=== PATIENT | male | born 1955 | race Caucasian/White ===

== ENCOUNTER 2024-10-28 10:05 | Inpatient (IN) | payer OTHER ==
[2024-10-28] MEDS ORDERED: MORPHINE 4 MG/ML SYR ONE ×2 (10:36→11:42)
[2024-10-28] MEDS ORDERED: ONDANSETRON 4 MG/2 ML VIAL ONE (10:36)
[2024-10-28] MEDS ORDERED: NA CHLORIDE 0.9% 1,000 ML ONE (10:36)
[2024-10-28 10:40] LABS: Absolute Lymphocytes (CBC) 1.7 K/uL (0.7-4.9); Hematocrit 38.2 % (39.6-49.0); Hemoglobin 12.7 g/dL (13.6-17.9); MCH 31.4 pg (27.0-35.0); MCHC 33.2 g/dL (32.0-36.0); MCV 94.6 fL (80-100); MPV 7.1 fL (7.6-11.3); Nucleated RBC Absolute Count 0.0 (0-0); Nucleated Red Blood Cells % 0.0 % (0-0); RBC Red Blood Cell Count 4.04 M/uL (4.33-5.43); White Blood Count 13.60 thou/uL (4.3-10.9)
[2024-10-28 10:58] LABS: ALT/SGPT 15 U/L (16-61); Albumin 2.2 g/dL (3.4-5.0); Albumin/Globulin Ratio 0.6 (1.1-1.8); Alkaline Phosphatase 65 U/L (45-117); Anion Gap 9.0 mEq/L (5.0-15.0); BUN Blood Urea Nitrogen 28 mg/dL (7-18); Globulin 3.4 g/dL (2.3-3.5); Glucose Level 195 mg/dL (74-106); Lipase 24 U/L (13-75); Potassium 4.0 mEq/L (3.5-5.1)
--- NOTE | 2024-10-28 10:58 | RAD REPORT ---
EXAM: Chest Single View HISTORY: 69 years Male Cough;Congestion COMPARISON: 10/26/2024 FINDINGS: LUNGS/PLEURA: Worsening aeration at the left lung base which may represent increasing pneumonia. Poss ible small left effusion. CARDIAC/MEDIASTINUM: Stable size and configuration. UPPER ABDOMEN: No significant abnormality. BONES: No acute abnormality. LINES/TUBES/OTHER: N/A IMPRESSION: Worsened aeration left lung base remains concerning for pneumonia.
[2024-10-28 11:08] LABS: AST/SGOT < 10 U/L (15-37)
--- NOTE | 2024-10-28 11:36 | RAD REPORT ---
EXAMINATION: Abdomen Pelvis W Contrast CLINICAL INDICATION: Male, 69 years old.ABD PAIN TECHNIQUE: CT abdomen and pelvis was performed, after the administration of IV contrast, as per [facility] protocol. Axial, sagittal and coronal reconstructions were obtained. One or more of the following dose reduction techniques were used: Automated exposure control, adjustment of the mA and/o r kV according to patient size, and/or iterative reconstruction. Unless otherwise specified, incidental findings do not require dedicated imaging follow-up. [id number]. COMPARISON: 10/23/2024 FINDINGS: LOWER CHEST: Similar consolidative airspace disease in left lower lobe. Increase in size of a small l eft pleural effusion.No significant pericardial effusion. Mild circumferential thickening of the distal esophagus which could reflect esophagitis. UPPER GI: No significant abnormality. LIVER: No significant focal abnormality. GALLBLADDER/BILE DUCTS: No biliary ductal dilatation.? PANCREAS: No mass, ductal dilation, or jimenez-pancreatic fluid. SPLEEN: Unremarkable. ADRENALS: No adrenal masses. KIDNEYS AND URETERS: No hydronephrosis.Low density and/or too small to characterize renal lesions whi ch are statistically benign. ABDOMINAL AORTA AND OTHER VESSELS: Moderate atherosclerotic changes without aortic aneurysm. PERITONEUM: No abnormal free fluid. No free air. LYMPH NODES: No pathologic lymphadenopathy. ABDOMINAL WALL: Unremarkable SMALL BOWEL/COLON: Small bowel has normal course and caliber. No colonic wall thickening or pericolon ic inflammatory changes. Mild diverticulosis without diverticulitis. Moderate formed stool burden. URINARY BLADDER: Underdistended but grossly unremarkable. REPRODUCTIVE ORGANS: Mild prostatomegaly. MUSCULOSKELETAL: No acute or suspicious osseous abnormality. ADDITIONAL FINDINGS: None IMPRESSION: No acute findings within the abdomen or pelvis. Persistent consolidative left lower lobe airspace disease concerning for pneumonia with small but enl arging parapneumonic effusion.
[2024-10-28 12:26] LABS: PT Prothrombin Time 14.0 SECONDS (10-13.0); PTT, Activated Partial Thromb 28.1 SECONDS (27.2-37.4); Protime INR 1.25
--- NOTE | 2024-10-28 12:55 | EDPHYS ---
Physician Documentation [facility] Name: Kirill Mae Age: 69 yrs Sex: Male : 1955 Arrival Date: 10/28/2024 Time: 10:05 Bed 16 Private MD: ED Physician Saturnino Meza HPI: 10/28 12:55 This 69 yrs old Male presents to ER via Ambulatory with complaints of Abdominal Pain. kb 12:55 Pt is a 69 year old male who presents for left sided abd pain that started yesterday. kb States he was admitted for 3 days for pneumonia, discharged on Saturday. States he didn't have pain with the pneumonia, but now has the pain and it has become unbearable. States his cough, congestion and fever have not gotten any better since discharge. Historical: - Allergies: 10:15 No Known Allergies; ll1 - PMHx: 10:15 History of urinary tract infection; ll1 - PSHx: 10:15 Appendectomy; ll1 - Immunization history:: Adult Immunizations up to date. - Infectious Disease History:: Denies. - Social history:: Smoking status: Patient denies any tobacco usage or history of. ROS: 12:45 Constitutional: As per HPI kb Exam: 12:45 Constitutional: This is a well developed, well nourished patient who is awake, alert, kb and in no acute distress. Head/Face: Normocephalic, atraumatic. ENT: Moist Mucous membranes Cardiovascular: Regular rate Respiratory: Respirations even and unlabored. No increased work of breathing. Talking in full sentences Skin: Warm, dry with normal turgor. Normal color. MS/ Extremity: Pulses equal, no cyanosis. Neurovascular intact. Full, normal range of motion. Neuro: Awake and alert, GCS 15, oriented to person, place, time, and situation. 12:45 Abdomen/GI: Inspection: abdomen appears normal, Bowel sounds: normal, Palpation: soft, in all quadrants, moderate abdominal tenderness, in the left lower quadrant, Vital Signs: 10:21 BP 123 / 64; Pulse 85; Resp 22; Temp 97.6; Pulse Ox 98% ; Weight 74.84 kg; Height 5 ft. ll1 7 in. ; Pain 10/10; 11:00 BP 136 / 72; Pulse 76; Resp 15; Pulse Ox 99% ; me1 12:00 BP 126 / 79; Pulse 76; Resp 14; Pulse Ox 100% ; me1 13:00 BP 128 / 76; Pulse 74; Resp 15; Pulse Ox 98% ; me1 16:00 BP 127 / 64; Pulse 79; Resp 16; Temp 98.2; Pulse Ox 97% ; me1 10:21 Body Mass Index 25.84 (74.84 kg, 170.18 cm) ll1 10:21 Pain Scale: Adult ll1 MDM: 10:10 Medical Screening Exam initiated kb 12:47 Data reviewed: vital signs, nurses notes. kb 12:54 Differential diagnosis: diverticulitis, pneumonia, pleurisy, effusion, pneumothorax. kb Consideration of Admission/Observation Patient was admitted/placed on observation. Escalation of care including admission/observation considered. Management of patient was discussed with the following: Hospitalist: Evan THOMPSON accepts pt for admission under Dr Meza. Historians other than the Patient: Family Member: family. Counseling: I had a detailed discussion with the patient and/or guardian regarding the historical points, exam findings, and any diagnostic results supporting the discharge/admit diagnosis, lab results, radiology results, the need for further work-up and treatment in the hospital. 10/28 10:23 Order name: CBC with Diff; Complete Time: 11:03 kb 10/28 10:23 Order name: CMP; Complete Time: 11:09 kb 10/28 10:23 Order name: Lipase; Complete Time: 11:09 kb 10/28 11:09 Order name: Blood Culture Adult (2) kb 10/28 11:09 Order name: Lactate w/ 2H reflex if indic.; Complete Time: 12:41 kb 10/28 11:09 Order name: Protime (+inr); Complete Time: 12:41 kb 10/28 11:09 Order name: Ptt, Activated; Complete Time: 12:41 kb 10/28 10:23 Order name: CT Abd/Pelvis - IV Contrast Only; Complete Time: 11:37 kb 10/28 10:23 Order name: Chest Single View XRAY; Complete Time: 11:03 kb 10/28 10:23 Order name: IV Saline Lock; Complete Time: 10:34 kb 10/28 10:23 Order name: Labs collected and sent; Complete Time: 10:34 kb Administered Medications: 10:42 Drug: Ondansetron IVP 4 mg IVP once; over 2 minutes Route: IVP; Site: left antecubital; me1 11:19 Follow up: Response: No adverse reaction; Nausea is decreased me1 10:42 Drug: morphine IVP or IV 4 mg IVP once over 4 mins Route: IVP; Infused Over: 4 mins; me1 Site: left antecubital; 11:20 Follow up: Response: No adverse reaction; Pain is decreased me1 10:42 Drug: NS 0.9% IV 1000 ml IV at 1 bolus Per protocol; to be given as a bolus over 60 me1 minutes Route: IV; Rate: 1 bolus; Site: left antecubital; 14:50 Follow up: Response: No adverse reaction; IV Status: Completed infusion; IV Intake: me1 1000ml 11:52 Drug: morphine IVP or IV 4 mg IVP once over 4 mins Route: IVP; Infused Over: 4 mins; me1 Site: left antecubital; 12:32 Follow up: Response: No adverse reaction; Pain is decreased me1 13:14 Drug: Rocephin IV 1 grams IV at calculated rate once; Given slow IV push per pharmacy me1 instructions Route: IV; Rate: calculated rate; Site: left antecubital; 13:26 Follow up: Response: No adverse reaction; IV Status: Completed infusion me1 13:14 Drug: Zithromax IVPB 500 mg IVPB once over 1 hrs; mix in 250 mL NS Route: IVPB; Infused me1 Over: 1 hrs; Site: left antecubital; 14:13 Follow up: Response: No adverse reaction; IV Status: Completed infusion; IV Intake: me1 250ml 14:01 Drug: Hydrocodone-Acetaminophen PO (7.5 mg-325 mg) 1 tabs PO once Route: PO; me1 14:50 Follow up: Response: No adverse reaction; Pain is decreased me1 Disposition: 18:09 Co-signature as Attending Physician, Saturnino Meza MD I reviewed the patient's care rn provided by the Advanced Practice Provider and agree with the diagnosis and treatment plan. Disposition Summary: 10/28/24 12:55 Hospitalization Ordered Notes: Hospitalization Status: Observation kb Provider: Dmitri Meza Location: Telemetry/MedSurg (observation) kb Condition: Stable kb Problem: new kb Symptoms: are unchanged kb Bed/Room Type: Standard Room Assignment: 223(10/28/24 16:39) bc6 Diagnosis - Pneumonia, unspecified organism kb Forms: - Medication Reconciliation Form kb - SBAR form kb - Leadership Thank You Letter kb Signatures: Dispatcher [employer] EDSusan Craven, RIB CHOPPER-C RIB CHOPPER-Ckb Saturnino Meza MD MD rn Evan Cummings RIB CHOPPER-C RIB CHOPPER-Emanuel Mcelroy, RN RN ll1 Leah Tang bc6 Dawn Kate, RN RN me1 Corrections: (The following items were deleted from the chart) 10:23 10:23 Chest Single View+RAD.RAD.BRZ ordered. EDMS EDMS 11:10 11:09 BLOOD CULTURE*+BA.LAB.BRZ ordered. EDMS EDMS 11:10 11:09 LACTATE+C.LAB.BRZ ordered. EDMS EDMS 11:10 11:09 PROTIME (+INR)+COAG.LAB.BRZ ordered. EDMS EDMS 11:10 11:09 PTT, ACTIVATED+COAG.LAB.BRZ ordered. EDMS EDMS 12:56 12:55 Pt is a 69 year old male who presents for left sided abd pain that started kb yesterday. States he was admitted for 3 days for pneumonia, discharged on Saturday. States he didn't have pain with the pneumonia, but now has the pain and it has become unbearable. . kb 16:39 12:55 kb bc6
--- NOTE | 2024-10-28 12:55 | ER ---
Nurse's Notes [facility] Name: Kirill Mae Age: 69 yrs Sex: Male : 1955 Arrival Date: 10/28/2024 Time: 10:05 Bed 16 Private MD: Diagnosis: Pneumonia, unspecified organism Presentation: 10/28 10:21 Chief complaint: Patient states: LLQ abdominal pain with diarrhea started last night. ll1 Coronavirus screen: Client denies travel out of the [place] in the last 14 days. At this time, the client does not indicate any symptoms associated with coronavirus-19. Ebola Screen: Patient denies travel to an Ebola-affected area in the 21 days before illness onset. Initial Sepsis Screen: Does the patient meet any 2 criteria? No. Patient's initial sepsis screen is negative. Does the patient have a suspected source of infection? No. Patient's initial sepsis screen is negative. Risk Assessment: Do you want to hurt yourself or someone else? Patient reports no desire to harm self or others. Onset of symptoms was October 27, 2024. 10:21 Method Of Arrival: Ambulatory ll1 10:21 Acuity: ALFA 3 ll1 Triage Assessment: 10:22 General: Appears distressed, uncomfortable, Behavior is calm, cooperative, appropriate ll1 for age. Pain: Complains of pain in LLQ Pain currently is 10 out of 10 on a pain scale. Respiratory: Reports shortness of breath pain with respiration. GI: Reports lower abdominal pain, diarrhea. Historical: - Allergies: 10:15 No Known Allergies; ll1 - PMHx: 10:15 History of urinary tract infection; ll1 - PSHx: 10:15 Appendectomy; ll1 - Immunization history:: Adult Immunizations up to date. - Infectious Disease History:: Denies. - Social history:: Smoking status: Patient denies any tobacco usage or history of. Screenin:30 [facility] ED Fall Risk Assessment (Adult) History of falling in the last 3 months, me1 including since admission No falls in past 3 months (0 pts) Confusion or Disorientation No (0 pts) Intoxicated or Sedated No (0 pts) Impaired Gait No (0 pts) Mobility Assist Device Used No (0 pt) Altered Elimination No (0 pt) Score/Fall Risk Level 0 - 2 = Low Risk Maintained a safe environment, Provided non-skid footwear, Hourly rounding (assess needs \T\ fall precautionary measures) done. Abuse screen: Denies threats or abuse. Nutritional screening: No deficits noted. Tuberculosis screening: No symptoms or risk factors identified. Assessment: 10:30 General: Appears uncomfortable, well groomed, well developed, well nourished, Behavior me1 is calm, cooperative, appropriate for age, Reports LLQ abdominal pain with diarrhea started last night. Pain: Complains of pain in left lower quadrant Pain does not radiate. Pain currently is 10 out of 10 on a pain scale. Quality of pain is described as pressure, sharp, Pain began 1 day ago. Is continuous. Neuro: Level of Consciousness is awake, alert, obeys commands, Oriented to person, place, time, situation, Appropriate for age. Cardiovascular: Patient's skin is warm and dry. Respiratory: Reports cough that is persistent patient was recently discharged from the hospital with pneumonia. Airway is patent Respiratory effort is even, unlabored, Respiratory pattern is regular, symmetrical. GI: Bowel sounds present X 4 quads. Abd is soft X 4 quads Reports lower abdominal pain, diarrhea. : No signs and/or symptoms were reported regarding the genitourinary system. EENT: No signs and/or symptoms were reported regarding the EENT system. Derm: Skin is intact, is healthy with good turgor, Skin is pink, warm \T\ dry. Musculoskeletal: No signs and/or symptoms reported regarding the musculoskeletal system. Vital Signs: 10:21 BP 123 / 64; Pulse 85; Resp 22; Temp 97.6; Pulse Ox 98% ; Weight 74.84 kg; Height 5 ft. ll1 7 in. ; Pain 10/10; 11:00 BP 136 / 72; Pulse 76; Resp 15; Pulse Ox 99% ; me1 12:00 BP 126 / 79; Pulse 76; Resp 14; Pulse Ox 100% ; me1 13:00 BP 128 / 76; Pulse 74; Resp 15; Pulse Ox 98% ; me1 16:00 BP 127 / 64; Pulse 79; Resp 16; Temp 98.2; Pulse Ox 97% ; me1 10:21 Body Mass Index 25.84 (74.84 kg, 170.18 cm) [facility] 10:21 Pain Scale: Adult ll1 ED Course: 10:09 Patient arrived in ED. al6 10:10 [facility] kb 10:10 Brodie Hinson MD is Attending Physician. kb 10:10 Saturnino Meza MD is Attending Physician. kb 10:15 Arm band placed on. ll1 10:15 Patient placed in an exam room, on a stretcher. ll1 10:22 Triage completed. ll1 10:23 Dawn Kate, RN is Primary Nurse. me1 10:30 Patient has correct armband on for positive identification. Bed in low position. Call me1 light in reach. Side rails up X2. Provided Education on: POC. Verbalized understanding.. Client placed on continuous cardiac and pulse oximetry monitoring. NIBP monitoring applied. Pulse ox on. NIBP on. 10:30 No provider procedures requiring assistance completed. me1 10:34 Initial lab(s) drawn, by me, sent to lab. Inserted saline lock: 22 gauge in right me1 antecubital area, using aseptic technique. 10:48 Chest Single View XRAY In Process Unspecified. EDMS 11:19 CT Abd/Pelvis - IV Contrast Only In Process Unspecified. EDMS 11:42 First set of blood cultures drawn by me. me1 11:48 Blood Culture Adult (2) Sent. me1 11:48 Lactate w/ 2H reflex if indic. Sent. me1 11:48 Protime (+inr) Sent. me1 11:48 Ptt, Activated Sent. me1 11:54 Second set of blood cultures drawn by me. me1 12:55 Dmitri Meza MD is Hospitalizing Provider. kb 16:46 Patient admitted, IV remains in place. me1 Administered Medications: 10:42 Drug: Ondansetron IVP 4 mg IVP once; over 2 minutes Route: IVP; Site: left antecubital; me1 11:19 Follow up: Response: No adverse reaction; Nausea is decreased me1 10:42 Drug: morphine IVP or IV 4 mg IVP once over 4 mins Route: IVP; Infused Over: 4 mins; me1 Site: left antecubital; 11:20 Follow up: Response: No adverse reaction; Pain is decreased me1 10:42 Drug: NS 0.9% IV 1000 ml IV at 1 bolus Per protocol; to be given as a bolus over 60 me1 minutes Route: IV; Rate: 1 bolus; Site: left antecubital; 14:50 Follow up: Response: No adverse reaction; IV Status: Completed infusion; IV Intake: me1 1000ml 11:52 Drug: morphine IVP or IV 4 mg IVP once over 4 mins Route: IVP; Infused Over: 4 mins; me1 Site: left antecubital; 12:32 Follow up: Response: No adverse reaction; Pain is decreased me1 13:14 Drug: Rocephin IV 1 grams IV at calculated rate once; Given slow IV push per pharmacy me1 instructions Route: IV; Rate: calculated rate; Site: left antecubital; 13:26 Follow up: Response: No adverse reaction; IV Status: Completed infusion me1 13:14 Drug: Zithromax IVPB 500 mg IVPB once over 1 hrs; mix in 250 mL NS Route: IVPB; Infused me1 Over: 1 hrs; Site: left antecubital; 14:13 Follow up: Response: No adverse reaction; IV Status: Completed infusion; IV Intake: me1 250ml 14:01 Drug: Hydrocodone-Acetaminophen PO (7.5 mg-325 mg) 1 tabs PO once Route: PO; me1 14:50 Follow up: Response: No adverse reaction; Pain is decreased me1 Medication: 10:30 VIS not applicable for this client. me1 Intake: 14:13 IV: 250ml; Total: 250ml. me1 14:50 IV: 1000ml; Total: 1250ml. me1 Outcome: 12:55 Decision to Hospitalize by Provider. kb 16:46 Admitted to Med/surg accompanied by tech, via wheelchair, room 223, with chart, Report me1 called to tubed up, receipt confirmed with Polly 16:46 Condition: stable 16:46 Instructed on the need for admit, 17:34 Patient left the ED. me1 Signatures: Dispatcher [employer] Susan Phan, MARYA SCHAFFERP-Emanuel White RN RN 1 Dawn Kate RN RN ia1 Ester Ocampo Corrections: (The following items were deleted from the chart) 12:27 10:21 Chief complaint: Patient states: LLQ abdominal pain with diarrhea started last me1 night ll1 16:41 14:00 BP 128 / 76; Pulse 74bpm; Resp 17bpm; Pulse Ox 98%; me1 me1
[2024-10-28] MEDS ORDERED: NA CHLORIDE 0.9% 250 ML ONE (12:59)
[2024-10-28] MEDS ORDERED: CEFTRIAXONE 1000 MG/VIAL ONE (12:59)
[2024-10-28] MEDS ORDERED: AZITHROMYCIN 500 MG INJ IVPB ONE (12:59)
[2024-10-28] MEDS ORDERED: HYDROCODONE/APAP 7.5/325 MG TAB ONE (13:52)
[2024-10-28] MEDS ORDERED: BENZONATATE 100 MG CAP PO PRN (14:04)
[2024-10-28] MEDS ORDERED: ONDANSETRON 4 MG/2 ML VIAL IV PRN (14:04)
[2024-10-28] MEDS ORDERED: HYDROCODONE/APAP 7.5/325 MG TAB PO PRN (14:04)
--- NOTE | 2024-10-28 16:55 | P.HP ---
Certification for Inpatient Patient admitted to: Observation With expected LOS: <2 Midnights Patient will require the following post-hospital care: None Practitioner: I am a practitioner with admitting privileges, knowledge of patient current condition, hospital course, and medical plan of care. Services: Services provided to patient in accordance with Admission requirements found in Title 42 Section 412.3 of the Code of Federal Regulations Patient History Date of Service: 10/28/24 Reason for admission: Parapneumonic effusion History of Present Illness: 69-year-old with history of hypertension presents to the emergency department chief complaint of left upper abdominal pain. He had a recent hospitalization for pneumonia from 10/23 through 10/26. He was discharged on Omnicef and his blood pressure medications were adjusted at that time. He also had an acute kidney injury during the hospitalization, his creatinine at discharge was 1.53 it is down to 1.[address] scan of his abdomen pelvis today in the emergency department given his worsening pain which is especially worse with deep breaths coughs and repositioning CT showed nothing acute in the abdomen but did redemonstrate the pneumonia with an increasing in size parapneumonic effusion present. White blood cell count is 13.6 on admission, decreased from discharge, patient is breathing well on room air but having significant pain. He will be admitted under observation for parapneumonic effusion, intractable pain. Allergies No Known Allergies Allergy (Unverified 10/23/24 20:31) Home Medications: Dupilumab [Dupixent Pen] 200 mg SQ SEECOM 10/23/24 Fenofibrate 54 mg PO DAILY 10/24/24 Montelukast [Singulair*] 10 mg PO DAILY 10/24/24 Amlodipine [Norvasc*] 10 mg PO DAILY 30 Days #30 tab 10/26/24 Cefdinir [Omnicef] 300 mg PO BID 7 Days #14 cap 10/26/24 Valsartan [Diovan] 80 mg PO DAILY 30 Days #30 tab 10/26/24 - Past Medical/Surgical History Diabetic: No -: Pneumonia -: Hypertension -: Hypertension - Social History Alcohol use: No CD- Drugs: No Caffeine use: No Place of Residence: Home Review of Systems 10-point ROS is otherwise unremarkable Respiratory: Cough, Shortness of Breath, Pleuritic Pain Physical Examination - Physical Exam General: Alert, In no apparent distress, Oriented x3 HEENT: Atraumatic, PERRLA, EOMI Neck: Supple, 2+ carotid pulse no bruit, No LAD Respiratory: Clear to auscultation bilaterally, Normal air movement Cardiovascular: Regular rate/rhythm, Normal S1 S2 Gastrointestinal: Normal bowel sounds, No tenderness Musculoskeletal: No tenderness Integumentary: No rashes Neurological: Normal gait, Normal speech, Normal strength at 5/5 x4 extr - Studies Laboratory Data (last 24 hrs) 10/28/24 10/28/24 10/28/24 11:42 10:33 10:33 WBC 13.60 H Hgb 12.7 L Hct 38.2 L Plt Count 541 H PT 14.0 H INR 1.25 APTT 28.1 Sodium 139 Potassium 4.0 BUN 28 H Creatinine 1.35 H Glucose 195 H Total Bilirubin 0.3 AST < 10 L ALT 15 L Alkaline Phosphatase 65 Lipase 24 Assessment and Plan - Plan Assessment: Left lower lobe pneumonia with parapneumonic effusion Hypertension Plan: Left lower lobe pneumonia with parapneumonic effusion Pulmonary consult, Abx with levaquin PRN pain meds for severe pleuritic pain Repeat CBC and chemistry in the morning Monitor for oxygen requirement-currently on room air Hypertension Continue home medications DVT PPX:Heparin Subq Code status:Full Discharge Plan: Home Plan to discharge in: 24 Hours - Advance Directives Does patient have a Living Will: No Does patient have a Durable POA for Healthcare: No - Code Status/Comfort Care Code Status Assessed: Yes (Full ) Critical Care: No Time Spent Managing Pts Care (In Minutes): 67
[2024-10-28] MEDS: MORPHINE 2 MG/ML SYR IV PRN (17:40)
[2024-10-28 17:44] VITALS: O2SAT 97
[2024-10-28] MEDS: HEPARIN 5000 UNIT/ML 1 ML VIAL SQ SCH (21:11)
[2024-10-28] MEDS: LACTOBACILLUS/ACIDOPHILUS TAB PO SCH (21:17)
[2024-10-28] MEDS: KETOROLAC 30 MG/ML INJ IV ONE (21:18)
--- NOTE | 2024-10-29 08:48 | P.CNS ---
Date of Consult: 10/29/24 Reason for Consult: Left lower lobe pneumonia left-sided pleuritic chest pain Chief Complaint: Parapneumonic effusion History of Present Illness: Patient is 69 years of age came to the emergency room last Ronal complaining of left-sided chest pain he was admitted diagnosed with pneumonia discharged home back again complaining of severe left-sided chest discomfort and was found to have progression of his pneumonia patient does not smoke also was found to have a small effusion Allergies No Known Allergies Allergy (Unverified 10/23/24 20:31) Home Medications: Dupilumab [Dupixent Pen] 200 mg SQ SEECOM 10/23/24 Fenofibrate 54 mg PO DAILY 10/24/24 Montelukast [Singulair*] 10 mg PO DAILY 10/24/24 Amlodipine [Norvasc*] 10 mg PO DAILY 30 Days #30 tab 10/26/24 Valsartan [Diovan] 80 mg PO DAILY 30 Days #30 tab 10/26/24 - Past Medical/Surgical History Diabetic: No -: Pneumonia -: Hypertension -: Hypertension - Social History Smoking Status: Former smoker Alcohol use: No CD- Drugs: No Caffeine use: No Place of Residence: Home Review of Systems 10-point ROS is otherwise unremarkable General: Weakness Respiratory: Shortness of Breath Physical Examination Temp Pulse Resp BP Pulse Ox 98.4 F 76 18 113/64 95 10/29/24 08:00 10/29/24 08:00 10/29/24 08:00 10/29/24 08:00 10/29/24 08:00 General: Alert, Oriented x3 Respiratory: Diminished, Crackles/rales (Crackles at the left base) Cardiovascular: No edema, Regular rate/rhythm Laboratory Data (last 24 hrs) 10/28/24 10/28/24 10/28/24 11:42 10:33 10:33 WBC 13.60 H Hgb 12.7 L Hct 38.2 L Plt Count 541 H PT 14.0 H INR 1.25 APTT 28.1 Sodium 139 Potassium 4.0 BUN 28 H Creatinine 1.35 H Glucose 195 H Total Bilirubin 0.3 AST < 10 L ALT 15 L Alkaline Phosphatase 65 Lipase 24 - Problems (1) LLL pneumonia Current Visit: No Status: Acute Plan: Patient is 69 years of age admitted with left lower lobe progressive pneumonia in addition to left-sided pleural effusion he complains of severe pleuritic chest pain labs chemistries reviewed white count is elevated in view of his severe pain changed to IV Zosyn and vancomycin continue to monitor for progression of his pleural effusion pain medications lateral decubitus chest x- ray vital signs oxygenation satisfactory patient's renal function is abnormal start on IV fluids Qualifiers: Aspiration pneumonia type: unspecified
[2024-10-29] MEDS: VANCOMYCIN 1 GM in NA CHLORIDE 0.9% 250 ML IVPB SCH (09:00)
[2024-10-29 09:18] LABS: Absolute Lymphocytes (CBC) 2.3 K/uL (0.7-4.9); Hematocrit 36.1 % (39.6-49.0); Hemoglobin 12.4 g/dL (13.6-17.9); MCH 32.3 pg (27.0-35.0); MCHC 34.2 g/dL (32.0-36.0); MCV 94.3 fL (80-100); MPV 7.1 fL (7.6-11.3); Nucleated RBC Absolute Count 0.0 (0-0); Nucleated Red Blood Cells % 0.1 % (0-0); RBC Red Blood Cell Count 3.83 M/uL (4.33-5.43); White Blood Count 12.40 thou/uL (4.3-10.9)
[2024-10-29] MEDS: Oxycodone HCl/Acetaminophen 5/325 MG TAB PO PRN (09:29)
[2024-10-29] MEDS: AMLODIPINE 10 MG TAB PO SCH (09:29)
[2024-10-29] MEDS: NA CHLORIDE 0.9% 1,000 ML IV SCH (09:30)
[2024-10-29] MEDS: PIPER TAZO 4.5 GM in NA CHLORIDE 0.9% 100 ML IV SCH (09:30)
[2024-10-29] MEDS: VALSARTAN 80 MG TAB PO SCH (09:30)
[2024-10-29 09:33] LABS: Anion Gap 6.1 mEq/L (5.0-15.0); BUN Blood Urea Nitrogen 26.0 mg/dL (7-18); Glucose Level 115.0 mg/dL (74-106); Potassium 4.1 mEq/L (3.5-5.1)
[2024-10-29] MEDS: VANCOMYCIN 1.5 GM in NA CHLORIDE 0.9% 500 ML IVPB SCH (11:03)
[2024-10-29] MEDS: LIDOCAINE 4% PATCH TOP SCH (14:39)
--- NOTE | 2024-10-29 14:49 | RAD REPORT ---
EXAMINATION: Chest Lateral Decubitus CLINICAL INDICATION: Left effusion TECHNIQUE: 2 view decubitus radiographs of the chest were performed. COMPARISON: 10/28/2024 FINDINGS: Decubitus view of the chest left side down demonstrate small pleural effusion on the left measuring m aximally 2.5 cm in thickness.
--- NOTE | 2024-10-29 15:18 | P.PN ---
Date of Service: 10/29/24 Subjective: Still with pleuritic left-sided chest pain Breathing well on room air No other acute events overnight ROS: 10 point ROS as noted above, otherwise negative Physical exam GEN: Alert, oriented, NAD HEENT: Normal conjunctiva, sclera anicteric CV: Regular rate and rhythm, no edema Pulm: Nonlabored respirations on room air ABD: Soft, nontender, nondistended MSK: No joint tenderness Integumentary: No rashes Neuro: Normal speech, normal affect Vitals reviewed Assessment: Left lower lobe pneumonia with parapneumonic effusion Hypertension Plan: Left lower lobe pneumonia with parapneumonic effusion Pulmonary consult, Abx vancomycin and Zosyn PRN pain meds for severe pleuritic pain Decubitus chest x-ray performed today with small pleural effusion Monitor for oxygen requirement-currently on room air Hypertension Continue home medications DVT PPX:Heparin Subq Code status:Full Discharge Plan: Home Plan to discharge in: 48 hours Time Spent Managing Pts Care (In Minutes): 35
[2024-10-29] MEDS: HYDROMORPHONE HCL 0.5 MG/0.5 ML INJ IV PRN (18:07)
[2024-10-30 05:07] LABS: Absolute Lymphocytes (CBC) 2.5 K/uL (0.7-4.9); Hematocrit 33.3 % (39.6-49.0); Hemoglobin 11.0 g/dL (13.6-17.9); MCH 31.4 pg (27.0-35.0); MCHC 33.0 g/dL (32.0-36.0); MCV 95.2 fL (80-100); MPV 7.5 fL (7.6-11.3); Nucleated RBC Absolute Count 0.0 (0-0); Nucleated Red Blood Cells % 0.0 % (0-0); RBC Red Blood Cell Count 3.50 M/uL (4.33-5.43); White Blood Count 14.00 thou/uL (4.3-10.9)
[2024-10-30 05:16] LABS: Anion Gap 7.2 mEq/L (5.0-15.0); BUN Blood Urea Nitrogen 22.0 mg/dL (7-18); Glucose Level 127.0 mg/dL (74-106); Potassium 4.2 mEq/L (3.5-5.1)
--- NOTE | 2024-10-30 07:31 | RAD REPORT ---
Procedure: Chest Single View HISTORY: Cough COMPARISON: October 28, 2024 FINDINGS: Left lower lobe consolidation mildly improved. Small left pleural effusion Right lung clear Mild cardiomegaly IMPRESSION: Mild improvement in left lower lobe pneumonia
[2024-10-30] MEDS ORDERED: VALSARTAN 80 MG TAB PO SCH (09:00)
[2024-10-30] MEDS: FENOFIBRATE 48 MG TAB PO SCH (09:00)
[2024-10-30] MEDS ORDERED: AMLODIPINE 10 MG TAB PO SCH (09:00)
[2024-10-30] MEDS: HYDROCODONE/APAP 7.5/325 MG TAB PO PRN (09:25)
[2024-10-30] MEDS: ENOXAPARIN 40 MG/0.4 ML SQ SCH (09:25)
[2024-10-30] MEDS: MONTELUKAST 10 MG TAB PO SCH (09:26)
--- NOTE | 2024-10-30 14:28 | P.PN ---
Date of Service: 10/30/24 Subjective: Still with pleuritic left-sided chest pain Breathing well on room air No other acute events overnight ROS: 10 point ROS as noted above, otherwise negative Physical exam GEN: Alert, oriented, NAD HEENT: Normal conjunctiva, sclera anicteric CV: Regular rate and rhythm, no edema Pulm: Nonlabored respirations on room air ABD: Soft, nontender, nondistended MSK: No joint tenderness Integumentary: No rashes Neuro: Normal speech, normal affect Vitals reviewed Assessment: Left lower lobe pneumonia with parapneumonic effusion Hypertension Plan: Left lower lobe pneumonia with parapneumonic effusion Pulmonary consult, Abx vancomycin and Zosyn PRN pain meds for severe pleuritic pain Decubitus chest x-ray performed with small pleural effusion Monitor for oxygen requirement-currently on room air Repeat chest x-ray and blood work in the morning-possible DC if there is continued improvement Hypertension Continue home medications DVT PPX:Heparin Subq Code status:Full Discharge Plan: Home Plan to discharge in: 48 hours Time Spent Managing Pts Care (In Minutes): 35
--- NOTE | 2024-10-30 17:04 | P.PN ---
Subjective Date of Service: 10/30/24 Chief Complaint: Parapneumonic effusion left sided pleuritic chest pain Patient is slightly better still having considerable amount of pleuritic chest pain on the left side requiring narcotics Review of Systems General: Weakness Cardiovascular: Chest Pain Physical Examination - Vital Signs Temperature: 97.7 F Blood Pressure: 101/57 Pulse: 82 Respirations: 12 Pulse Ox (%): 96 - Physical Exam General: Alert, Oriented x3 Respiratory: Clear to auscultation bilaterally, Diminished Cardiovascular: No edema, Normal S1 S2 Assessment And Plan - Current Problems (Diagnosis) (1) LLL pneumonia Current Visit: No Status: Acute Plan: Patient is 69 years of age admitted with left-sided pleuritic chest pain has progression of his consolidation on the left side continue with Zosyn and vancomycin present at the bedside she is an RN has been a slight improvement in his pain there is been no improvement in his renal function despite using IV fluids abdominal CT scan did not show any acute findings will DC IV fluids for now continue with IV antibiotics until pain is subsided decubitus x-ray showed a very small pleural effusion 2.5 cm trial of IV steroids as his pain is out of proportion to his lab findings white count is normal patient has renal failure no response to IV fluids will hold off on the valsartan for now Qualifiers: Aspiration pneumonia type: unspecified
[2024-10-30] MEDS: METHYLPREDNISOLONE 40 MG INJ IV SCH (18:21)
[2024-10-31] MEDS: ALBUTEROL 2.5 MG/3 ML NEB SOL NEB PRN (00:25)
[2024-10-31 05:57] LABS: Absolute Lymphocytes (CBC) 0.9 K/uL (0.7-4.9); Hematocrit 34.5 % (39.6-49.0); Hemoglobin 11.5 g/dL (13.6-17.9); MCH 31.7 pg (27.0-35.0); MCHC 33.4 g/dL (32.0-36.0); MCV 94.8 fL (80-100); MPV 7.5 fL (7.6-11.3); Nucleated RBC Absolute Count 0.0 (0-0); Nucleated Red Blood Cells % 0.1 % (0-0); RBC Red Blood Cell Count 3.64 M/uL (4.33-5.43); White Blood Count 10.70 thou/uL (4.3-10.9)
[2024-10-31 06:16] LABS: Anion Gap 7.3 mEq/L (5.0-15.0); BUN Blood Urea Nitrogen 19.0 mg/dL (7-18); Glucose Level 202.0 mg/dL (74-106); Potassium 4.3 mEq/L (3.5-5.1)
[2024-10-31 06:45] VITALS: BMI 25.5
[2024-10-31 08:31] VITALS: BP 136/70; TEMP 97.9
--- NOTE | 2024-10-31 08:55 | RAD REPORT ---
EXAMINATION: ONE VIEW CHEST XR CLINICAL INDICATION: pneumonia TECHNIQUE: Frontal chest projection is submitted. Examination is limited by patient positioning and t echnique. COMPARISON: 10/30/2024 FINDINGS: Hazy appearance to the left lung base shows no significant change since comparison study. The lungs a re otherwise emphysematous. The heart is upper limit of normal in size. No displaced fractures identified. IMPRESSION: Hazy appearance of the left lung base is essentially stable. No new finding evident.
[2024-10-31] MEDS ORDERED: ALBUTEROL 2.5 MG/3 ML NEB SOL NEB PRN (09:02)
[2024-10-31 11:45] LABS: Blood Morphology Comment NOT SEEN (NOT SEEN); White Blood Cell Scan OK (OK)
--- NOTE | 2024-10-31 15:48 | P.DS ---
Admission Date: 10/29/24 Discharge Date: 10/31/24 Disposition: ROUTINE DISCHARGE Discharge Condition: GOOD Reason for Admission: Parapneumonic effusion left sided pleuritic chest pain Brief History of Present Illness: 69-year-old with history of hypertension presents to the emergency department chief complaint of left upper abdominal pain. He had a recent hospitalization for pneumonia from 10/23 through 10/26. He was discharged on Omnicef and his blood pressure medications were adjusted at that time. He also had an acute kidney injury during the hospitalization, his creatinine at discharge was 1.53 it is down to 1.[address] scan of his abdomen pelvis today in the emergency department given his worsening pain which is especially worse with deep breaths coughs and repositioning CT showed nothing acute in the abdomen but did redemonstrate the pneumonia with an increasing in size parapneumonic effusion present. White blood cell count is 13.6 on admission, decreased from discharge, patient is breathing well on room air but having significant pain. He will be admitted under observation for parapneumonic effusion, intractable pain. Hospital Course: Assessment: Left lower lobe pneumonia with parapneumonic effusion Hypertension Patient was admitted to the hospital for left-sided pneumonia with enlarging but small parapneumonic effusion. His primary reason for return to the hospital was severe pleuritic pain. He was having severe pain with deep breaths, cough. He was admitted to the hospital, antibiotics were broadened initially to vancomycin and Zosyn, he has remained afebrile and breathing well on room air. He was started on steroids would seem to significantly improve his pleuritic pain, he has not required pain medicine so far this morning and is feeling much better. He stable for discharge and outpatient follow-up with pulmonology in 2 weeks. Antibiotic changed to levofloxacin for 5 days Prescription for pain medications and prednisone sent to his pharmacy Continue other home medications as previously prescribed Hold your next dose of Dupixent Vital Signs/Physical Exam: Temp Pulse Resp BP Pulse Ox 97.9 F 83 16 136/70 92 10/31/24 08:00 10/31/24 08:00 10/31/24 08:00 10/31/24 08:00 10/31/24 08:00 General: Alert, In no apparent distress, Oriented x3 HEENT: Atraumatic, PERRLA Neck: Supple, JVD not distended Respiratory: Clear to auscultation bilaterally, Normal air movement Cardiovascular: Regular rate/rhythm, Normal S1 S2 Gastrointestinal: Normal bowel sounds, No tenderness Musculoskeletal: No tenderness Integumentary: No rashes Neurological: Normal speech, Normal affect Laboratory Data at Discharge: WBC 10.70 thou/uL (4.3-10.9) 10/31/24 05:19 Hgb 11.5 g/dL (13.6-17.9) L 10/31/24 05:19 Hct 34.5 % (39.6-49.0) L 10/31/24 05:19 Plt Count 618 thou/uL (152-406) H 10/31/24 05:19 PT 14.0 SECONDS (10-13.0) H 10/28/24 11:42 INR 1.25 10/28/24 11:42 APTT 28.1 SECONDS (27.2-37.4) 10/28/24 11:42 Sodium 138 mEq/L (136-145) 10/31/24 05:19 Potassium 4.3 mEq/L (3.5-5.1) 10/31/24 05:19 BUN 19 mg/dL (7-18) H 10/31/24 05:19 Creatinine 1.33 mg/dL (0.70-1.30) H 10/31/24 05:19 Glucose 202 mg/dL (74-106) H 10/31/24 05:19 Total Bilirubin 0.3 mg/dL (0.2-1.0) 10/28/24 10:33 AST < 10 U/L (15-37) L 10/28/24 10:33 ALT 15 U/L (16-61) L 10/28/24 10:33 Alkaline Phosphatase 65 U/L (45-117) 10/28/24 10:33 Lipase 24 U/L (13-75) 10/28/24 10:33 Home Medications: Dupilumab [Dupixent Pen] 200 mg SQ SEECOM 10/23/24 Fenofibrate 54 mg PO DAILY 10/24/24 Montelukast [Singulair*] 10 mg PO DAILY 10/24/24 Amlodipine [Norvasc*] 10 mg PO DAILY 30 Days #30 tab 10/26/24 Valsartan [Diovan] 80 mg PO DAILY 30 Days #30 tab 10/26/24 Hydrocodone 5/APAP 325 [[place] 5/325] 1 tab PO Q8H PRN #15 tab 10/31/24 levoFLOXacin [Levaquin*] 750 mg PO DAILY 5 Days #5 tab 10/31/24 predniSONE [Deltasone*] 10 mg PO BID 7 Days #14 tab 10/31/24 New Medications: predniSONE [Deltasone*] 10 mg PO BID 7 Days #14 tab levoFLOXacin [Levaquin*] 750 mg PO DAILY 5 Days #5 tab Hydrocodone 5/APAP 325 [[place] 5/325] 1 tab PO Q8H PRN #15 tab PRN Reason: Pain Physician Discharge Instructions: Patient was admitted to the hospital for left-sided pneumonia with enlarging but small parapneumonic effusion. His primary reason for return to the hospital was severe pleuritic pain. He was having severe pain with deep breaths, cough. He was admitted to the hospital, antibiotics were broadened initially to vancomycin and Zosyn, he has remained afebrile and breathing well on room air. He was started on steroids would seem to significantly improve his pleuritic pain, he has not required pain medicine so far this morning and is feeling much better. He stable for discharge and outpatient follow-up with pulmonology in 2 weeks. Antibiotic changed to levofloxacin for 5 days Prescription for pain medications and prednisone sent to his pharmacy Continue other home medications as previously prescribed Hold your next dose of Dupixent Diet: Regular Activity: Ad taiwo Followup: Artur Poole MD [ACTIVE - CAN ADMIT] - 1-2 Weeks Time spent managing pt's care (in minutes): 38
== END 2024-10-31 11:12 | disposition home or self-care (01) | DRG 194 ==
LOC: ER 10:05 → ERHOLD 14:03 → 2ND 16:49 → OBSVTOIN 10-29 15:16
PROVIDERS: ADMIT Hospitalist; ATTEND Hospitalist
DX: J18.9 Pneumonia, unspecified organism (principal); J90 Pleural effusion, not elsewhere classified; I10 Essential (primary) hypertension; Z79.52 Long term (current) use of systemic steroids; Z79.2 Long term (current) use of antibiotics; Z79.891 Long term (current) use of opiate analgesic; Z79.899 Other long term (current) drug therapy; Z87.440 Personal history of urinary (tract) infections; Z90.49 Acquired absence of other specified parts of digestive tract; Z87.891 Personal history of nicotine dependence
CPT/HCPCS: 36415; 71045; 71046; 74177; 80048; 80053; 83605; 83690; 85025; 85610; 85730; 87040; 94010; 94640; 96361; 96365; 96375; 99285; G0378; J0456; J0696; J1171; J1644; J1650; J2003; J2270; J2405; J2919; J3370; J7030; J7040; J7050; J7613; Q9967